=== PATIENT | female | born 1945 | race Caucasian/White ===

== ENCOUNTER 2017-07-24 11:18 | Emergency (ER) | payer OTHER, BC ==
[2017-07-24 11:25] VITALS: BP 133/75; PULSE 100; TEMP 98.6; BMI 39.4
[2017-07-24] MEDS ORDERED: LIDOCAINE 1%/EPI 1:100000 (20 ML MULTI DOSE VIAL) ONE (12:02)
--- NOTE | 2017-07-24 12:19 | PDOC ---
History of Present Illness - General History Source: Patient Exam Limitations: No Limitations - History of Present Illness Initial Comments: 07/24/17 12:19 The patient is a 71 year old female with significant past medical history of hypertension, hyperlipidemia, and borderline diabetes, sent to the ED for approximately 5 days of progressively worsening swelling on her right thigh. She reports associated discomfort in her right thigh. No noticeable drainage. She states this is similar to her previous recurrent abscesses. She was sent to the ED to be seen by Dr. Ann of surgery for abscess incision and drainage. The patient denies fever or chills. She denies nausea, vomiting, or diarrhea. She denies history of MRSA colonization. PCP: Dr. Quezada <Luzma Watson - Last Filed: 07/24/17 12:32> <Pepe Frankel - Last Filed: 07/24/17 13:29> - General Chief Complaint: Abscess Boil Stated Complaint: ABSCESS/ LOWER PELVIC AREA Time Seen by Provider: 07/24/17 11:49 Past History <Luzma Watson - Last Filed: 07/24/17 12:32> - Past Medical History Anemia: Yes (MANY YRS AGO) Asthma: No Cancer: Yes (UTERINE CANCER) Cardiac Disorders: No CVA: No COPD: Yes ("CHRONIC BRONCHITIS") CHF: No Dementia: No Diabetes: Yes ("BORDERLINE") GI Disorders: No Disorders: No HTN: Yes Hypercholesterolemia: Yes Liver Disease: No Seizures: No Thyroid Disease: No - Surgical History Abdominal Surgery: No Appendectomy: Yes Cardiac Surgery: No Cholecystectomy: Yes Lung Surgery: No Neurologic Surgery: Yes (SPINAL FUSION L4-L5) Orthopedic Surgery: Yes (BILATERAL ARTHRO KNEE; ELBOW SX) - Suicide/Smoking/Psychosocial Hx Smoking History: Never smoked Have you smoked in the past 12 months: No Information on smoking cessation initiated: No Hx Alcohol Use: No Drug/Substance Use Hx: No Substance Use Type: None Hx Substance Use Treatment: No <Pepe Frankel - Last Filed: 07/24/17 13:29> - Past Medical History Allergies/Adverse Reactions: Allergies Allergy/AdvReac Type Severity Reaction Status Date / Time adhesive Allergy Severe Rash Verified 07/24/17 11:21 No Known Drug Allergies Allergy Verified 07/24/17 11:21 Home Medications: Ambulatory Orders Ascorbic Acid [Vitamin C] 1,000 mcg PO DAILY 11/14/13 Aspirin [Aspirin EC] 81 mg PO DAILY 11/14/13 Cholecalciferol (Vitamin D3) [Vitamin D3] 2,000 unit PO DAILY 11/14/13 Cyanocobalamin [Vitamin B12 -] 100 mcg PO DAILY 11/14/13 Glucosamine/MSM/Chondroitin A [Tripleflex Caplet] 1 cap PO DAILY 11/14/13 Pravastatin Sodium [Pravachol -] 40 mg PO HS 11/14/13 Valsartan [Diovan] 80 mg PO DAILY 11/14/13 Naproxen Sodium [Aleve] 220 mg PO PRN PRN 01/12/14 Oxycodone HCl/Acetaminophen [Percocet 5-325 mg Tablet] 1 combo PO Q4H PRN #10 tablet 01/14/14 Sulfamethoxazole/Trimethoprim [Bactrim Ds Tablet] 1 each PO BID #14 tablet 07/24 Review of Systems - Review of Systems Constitutional: No: Chills, Fever Respiratory: No: Shortness of Breath Integumentary: Yes: See HPI Neurological: No: Headache <Pepe Frankel - Last Filed: 07/24/17 13:29> *Physical Exam - Vital Signs Last Vital Signs Temp Pulse Resp BP Pulse Ox 98.6 F 100 H 18 133/75 95 07/24/17 11:21 07/24/17 11:21 07/24/17 11:21 07/24/17 11:21 07/24/17 11:21 - Physical Exam Comments: 07/24/17 12:24 GENERAL: The patient is awake, alert, and fully oriented, in no acute distress. HEAD:Normal with no signs of trauma. EYES: Pupils equal, round and reactive to light, extraocular movements intact, sclera anicteric, conjunctiva clear. EXTREMITIES: Normal range of motion, no edema. Missing right third digit. NEUROLOGICAL: Normal speech, normal gait. PSYCH: Normal mood, normal affect. SKIN: Warm, Dry, normal turgor. +7cm abscess to the right medial posterior thigh with surrounding rim of cellulitis, no drainage, no crepitus. <Luzma Watson - Last Filed: 07/24/17 12:32> - Vital Signs Last Vital Signs Temp Pulse Resp BP Pulse Ox 98.6 F 100 H 18 133/75 95 07/24/17 11:21 07/24/17 11:21 07/24/17 11:21 07/24/17 11:21 07/24/17 11:21 <Pepe Frankel - Last Filed: 07/24/17 13:29> Medical Decision Making - Medical Decision Making 07/24/17 12:16 A portion of this note was documented by scribe services under my direction. I have reviewed the details of the note, within reason, and agree with the documentation with the following case summary and management plan written by me. 71-year-old female with history of hypertension and high cholesterol, borderline diabetes sent to see Dr. Ann for abscess incision and drainage. Has been developing right eye abscess over the last 5 days, was seen at Dr. Quezada's office and referred to ED. no known h/o MRSA but does get abscesses , which often spontaneously drain. afebrile. well appearing. About 8 cm right posterior medial thigh abscess Neurovascular intact Dr. Ann at bedside, will plan for I and D. Does not take blood thinners, no indication for lab work Given borderline diabetes, will cover with antibiotics Wound culture Discharge planning with Dr. Ann. 07/24/17 13:25 Status post I and D with Dr. Ann. Culture sent. Dressing placed. Will follow up, one week course of Bactrim was ordered by Dr. Ann. Patient tolerated well, agrees with discharge plan. <Pepe Frankel - Last Filed: 07/24/17 13:29> *DC/Admit/Observation/Transfer - Attestations Scribe Attestion: 07/24/17 12:25 Documentation prepared by Luzma Watson, acting as medical delivery driver for Pepe Frankel MD. <Luzma Watson - Last Filed: 07/24/17 12:32> <Pepe Frankel - Last Filed: 07/24/17 13:29> Diagnosis at time of Disposition: Abscess of right thigh - Discharge Dispostion Disposition: HOME Condition at time of disposition: Improved - Prescriptions Prescriptions: Sulfamethoxazole/Trimethoprim [Bactrim Ds Tablet] 1 each PO BID #14 tablet - Referrals Referrals: Gerardo Ann MD [Staff Physician] - - Patient Instructions Printed Discharge Instructions: DI for Incision and Drainage of a Skin Abscess Additional Instructions: Activity as tolerated. Stay hydrated. Tylenol 1000 mg every 8 hours and/or ibuprofen 600 mg every 8 hours as needed for pain. Remove the dressing tomorrow. As per Dr. Ann, may shower twice daily and follow-up with him in 1-2 weeks. Continue your medications as previously prescribed by your physician. Bactrim twice daily for one week. You should follow up with your primary doctor as soon as possible regarding today's emergency department visit. Return to the emergency department for any new or concerning symptoms, particularly persistent or worsening pain, increasing redness/swelling, fever/ chills, bleeding or pus.
[2017-07-24] MEDS ORDERED: BACITRACIN 0.9 GM PACKET ONE (13:14)
--- NOTE | 2017-07-24 13:14 | PN ---
Progress Note (short form) - Note Progress Note: surgery pt seen and examined. full consult and procedure note dictated. 71f with abscess in right posterior buttock. I$d done with 5 ml pus and small about of sebaceous material removed. cultures sent. pressure dressing placed. Plan-remove dressing tomorrow. shower bid with dry dressing. f/u in 1-2 weeks. 1 week bactrim given.
--- NOTE | 2017-07-24 16:26 | CONS ---
CONSULTATION AND PROCEDURE DATE OF CONSULTATION AND PROCEDURE: 07/24/2017 REASON FOR CONSULTATION AND PROCEDURE: An abscess of the posterior right buttock. This is an emergency room consultation. BRIEF HISTORY: This is a 71-year-old female who presents with a 5-day history of a painful lump on her posterior right buttock. She was sent in for surgical evaluation of drainage of a likely abscess. She denies fever. PAST MEDICAL HISTORY: Significant for hypertension and hyperlipidemia. HOME MEDICATIONS: Include aspirin and pravastatin. SOCIAL HISTORY: Negative for alcohol. Negative for tobacco. FAMILY HISTORY: Negative for in the immediate family. ALLERGIES: She has no known drug allergies. REVIEW OF SYSTEMS: General: Denies fatigue or malaise. Cardiac: Denies chest pain or palpitations. Respiratory: Denies shortness of breath or wheeze. Gastrointestinal: No nausea or vomiting. Genitourinary: Denies dysuria. Musculoskeletal: Denies joint pain and joint swelling. Psychiatric: Denies anxiety, depression, or hearing voices. Skin: Admits to a painful lump in her right posterior buttock. PHYSICAL EXAMINATION: General: This is a morbidly obese, 71-year-old female in no distress. Vital Signs: She is afebrile. HEENT: Her head is normocephalic. Her sclerae are anicteric. Neck: Supple. Chest: Clear. Abdomen: Soft. Extremities: Have edema. Skin: At her right inferior posterior buttock, she has an area of fluctuance approximately 3 cm in diameter with a puncta. ASSESSMENT: A 71-year-old female with a likely infected small cyst/abscess. We will perform incision and drainage. PROCEDURE: Incision and drainage of a posterior buttock cyst/abscess. SURGEON: Gerardo Ann DO SUGGESTION CLERK: None. ANESTHESIA: Local. PREPROCEDURE DIAGNOSIS: An inferior right buttock abscess. POSTPROCEDURE DIAGNOSIS: An inferior right buttock abscess. DRAINS: None. SPECIMEN: Wound culture. BLOOD LOSS: Minimal. COMPLICATIONS: None. DESCRIPTION OF PROCEDURE: The patient is placed in the lateral recumbent position with the right side up. The right posterior buttock is prepped and draped in sterile fashion, and 10 mL of lidocaine with epinephrine is used to anesthetize the overlying skin. A 3-cm incision is made over the area of fluctuance. Approximately 5 mL of pus with a small amount of sebum and cyst capsule is expressed. Pressure dressing is placed. Overall, the patient tolerated the procedure well. There were no complications. The patient was discharged home with a pressure dressing with bacitracin applied, with plans to remove the dressing tomorrow and shower twice a day with soap and water and apply a dry dressing. She will follow with me in 1-2 weeks to evaluate healing of the wound. She is also given a prescription for Bactrim DS twice a day. She will take that for 1 week, and cultures have been sent. DO VALDEMAR ELAM/[id number]
== END 2017-07-24 13:39 | disposition home or self-care (01) ==
LOC: JER 11:18
PROC: 0J990ZZ Drainage of Buttock Subcutaneous Tissue and Fascia, Open Approach (ICD-10-PCS; principal; 2017-07-24)
DX: L02.31 Cutaneous abscess of buttock (principal); L03.317 Cellulitis of buttock; I10 Essential (primary) hypertension; E11.9 Type 2 diabetes mellitus without complications; E78.00 Pure hypercholesterolemia, unspecified; J44.9 Chronic obstructive pulmonary disease, unspecified; Z85.42 Personal history of malignant neoplasm of other parts of uterus
CPT/HCPCS: 10060; 87070; 87205; 99282-25

== ENCOUNTER 2018-05-24 10:54 | Day surgery (SDC) | payer OTHER, BC ==
[2018-05-24 11:30] VITALS: BMI 40.7
[2018-05-24] MEDS ORDERED: PROPOFOL 20 ML ONE ×2 (12:22)
[2018-05-24] MEDS ORDERED: LIDOCAINE HCL/PF 2% SDV 5ML VIAL ONE (12:22)
[2018-05-24 13:04] VITALS: TEMP 98.7
[2018-05-24 15:10] VITALS: BP 127/74; PULSE 77
--- NOTE | 2018-05-27 12:27 | PATH ---
Surgical Pathology Report Patient Name: ANDRE REBOLLAR [facility]. Rec. #: [id number] /Age/Gender: 1945 (Age: 72) / F Account: [id number] Location: [facility]-ENDOSCOPY Taken: 05/24/2018 Received: 05/24/2018 Reported: 05/27/2018 Physicians: Dina Ramírez M.D. Specimen(s) Received A: BX CECUM POLYPS B: BX CECUM MICROSCOPIC COLITIS C: BX ILEUM D: BX POLYP FROM SIGMOID Clinical History Personal history of colon polyp Postoperative diagnosis: Cecal polyp, colon polyps, rule out microscopic colitis Final Diagnosis A. CECUM, POLYPS, BIOPSY: POLYPOID COLONIC MUCOSA WITH PROMINENT LYMPHOID AGGREGATE. B. CECUM, BIOPSY: COLONIC MUCOSA WITHOUT SIGNIFICANT PATHOLOGIC FINDINGS. C. ILEUM, BIOPSY: ILEAL MUCOSA WITHOUT SIGNIFICANT PATHOLOGIC FINDINGS. D. SIGMOID COLON, POLYP, BIOPSY: HYPERPLASTIC POLYP. Electronically Signed Merary Garcia M.D. Gross Description A. Received in formalin, labeled "biopsy cecal polyp" are 3 guerrier, irregular portions of soft tissue ranging from 0.1-0.3 cm. in greatest dimension. The specimens are submitted in toto in one cassette. B. Received in formalin, labeled "biopsy cecum" are 2 guerrier, irregular portions of soft tissue measuring 0.2 and 0.8 cm. in greatest dimension. The specimens are submitted in toto in one cassette. C. Received in formalin, labeled "biopsy ileum" are 2 guerrier, irregular portions of soft tissue measuring 0.1 and 0.4 cm. in greatest dimension. The specimens are submitted in toto in one cassette. D. Received in formalin, labeled "biopsy polyp sigmoid colon" are 2 guerrier, irregular portions of soft tissue measuring 0.1 and 0.3 cm. in greatest dimension. The specimens are submitted in toto in one cassette. DL/05/24/2018 saudi05/24/2018
== END 2018-05-24 14:15 | disposition home or self-care (01) ==
LOC: JASU-ENDO 10:54
PROVIDERS: ATTEND Internal Medicine Gastroenterology
PROC: 0DBN8ZX Excision of Sigmoid Colon, Via Natural or Artificial Opening Endoscopic, Diagnostic (ICD-10-PCS; 2018-05-24)
PROC: 0DBH8ZX Excision of Cecum, Via Natural or Artificial Opening Endoscopic, Diagnostic (ICD-10-PCS; principal; 2018-05-24 12:00)
DX: Z86.010 Personal history of colon polyps (principal); K63.5 Polyp of colon; K57.30 Diverticulosis of large intestine without perforation or abscess without bleeding; K63.89 Other specified diseases of intestine; R19.5 Other fecal abnormalities; I10 Essential (primary) hypertension; E78.5 Hyperlipidemia, unspecified
CPT/HCPCS: 88305-TC

== ENCOUNTER 2022-01-10 15:01 | Observation (INO) | payer OTHER, BC ==
[2022-01-10] MEDS ORDERED: METOCLOPRAMIDE HCL INJECTION 10 MG/2 ML VIAL IVPUSH ONE (16:19)
[2022-01-10] MEDS ORDERED: METOCLOPRAMIDE HCL INJECTION 10 MG/2 ML VIAL ONE (16:52)
[2022-01-10 17:08] LABS: BASO % 0.8 % (0-2.0); EOS % 2.2 % (0-4.5); HEMATOCRIT 41.5 % (32.4-45.2); HEMOGLOBIN 13.6 GM/dL (10.7-15.3); LYMPH % 22.7 % (8-40); MCH 27.2 pg (25.7-33.7); MCHC 32.7 g/dl (32.0-36.0); MEAN CELL VOLUME 83.2 fl (80-96); MEAN PLT VOLUME 10.1 fl (7.5-11.1); MONO % 7.4 % (3.8-10.2); NEUT % 66.9 % (42.8-82.8); PLATELET COUNT 270 10^3/uL (134-434); RBC 4.99 M/mm3 (3.60-5.2); RDW 15.1 % (11.6-15.6); WHITE BLOOD COUNT 9.9 K/mm3 (4.0-10.0)
[2022-01-10 17:17] LABS: INR 1.12 (0.83-1.09); PROTHROMBIN TIME (PATIENT) 12.9 SEC (9.7-13.0)
[2022-01-10 17:20] LABS: ACTIVATED PTT 30.1 SECONDS (25.2-36.5)
[2022-01-10 17:31] LABS: ALBUMIN 3.7 g/dl (3.4-5.0); BLOOD UREA NITROGEN 24.8 mg/dL (7-18); CALCIUM 9.3 mg/dL (8.5-10.1)
[2022-01-10 17:34] LABS: CREATININE 0.9 mg/dL (0.55-1.3)
[2022-01-10 17:36] LABS: BILIRUBIN,TOTAL 0.2 mg/dL (0.2-1); TOT PROT 7.2 g/dl (6.4-8.2)
[2022-01-10] MEDS ORDERED: MECLIZINE HCL 25 MG TABLET (FP) PO ONE (18:48)
[2022-01-10] MEDS ORDERED: MECLIZINE HCL 25 MG TABLET (FP) ONE (19:05)
[2022-01-10 19:07] LABS: URINE APPEARANCE CLEAR; URINE BILIRUBIN NEGATIVE (NEGATIVE); URINE COLOR YELLOW; URINE GLUCOSE (UA) NEGATIVE (NEGATIVE); URINE KETONE NEGATIVE (NEGATIVE); URINE LEUK ESTERASE NEGATIVE (NEGATIVE); URINE NITRITE NEGATIVE (NEGATIVE); URINE PROTEIN NEGATIVE (NEGATIVE); URINE UROBILINOGEN 0.2 mg/dL (0.2-1.0)
[2022-01-11] MEDS: SODIUM CHLORIDE 0.45% 1,000 ML IV SCH ×2 (01:56→22:58)
[2022-01-11 10:50] LABS: BASO % 0.5 % (0-2.0); HEMATOCRIT 40.2 % (32.4-45.2); HEMOGLOBIN 13.8 GM/dL (10.7-15.3); LYMPH % 17.7 % (8-40); MCH 28.1 pg (25.7-33.7); MCHC 34.3 g/dl (32.0-36.0); MEAN CELL VOLUME 81.9 fl (80-96); MEAN PLT VOLUME 9.6 fl (7.5-11.1); MONO % 6.3 % (3.8-10.2); NEUT % 73.5 % (42.8-82.8); PLATELET COUNT 241 10^3/uL (134-434); RBC 4.91 M/mm3 (3.60-5.2); RDW 15.2 % (11.6-15.6); WHITE BLOOD COUNT 10.2 K/mm3 (4.0-10.0)
[2022-01-11 10:54] LABS: INR 1.18 (0.83-1.09); PROTHROMBIN TIME (PATIENT) 13.6 SEC (9.7-13.0)
[2022-01-11 10:56] LABS: ACTIVATED PTT 28.6 SECONDS (25.2-36.5)
[2022-01-11 11:21] LABS: ALBUMIN 3.5 g/dl (3.4-5.0); BLOOD UREA NITROGEN 22.2 mg/dL (7-18); CALCIUM 9.4 mg/dL (8.5-10.1)
[2022-01-11] MEDS ORDERED: VALSARTAN 80 MG TABLET ONE (11:23)
[2022-01-11 11:24] LABS: CREATININE 0.9 mg/dL (0.55-1.3)
[2022-01-11 11:26] LABS: BILIRUBIN,TOTAL 0.7 mg/dL (0.2-1); TOT PROT 6.9 g/dl (6.4-8.2)
[2022-01-11] MEDS: HYDROCHLOROTHIAZIDE 12.5 MG CAPSULE (FP) PO SCH (11:30)
[2022-01-11] MEDS: VALSARTAN 80 MG TABLET PO SCH (11:30)
[2022-01-11] MEDS: INSULIN SLIDING SCALE (NOVOLOG) 1 VIAL SQ SCH ×3 (11:44→22:22)
[2022-01-11] MEDS ORDERED: MECLIZINE HCL 25 MG TABLET (FP) PO PRN (11:51)
[2022-01-11] MEDS ORDERED: ONDANSETRON 4 MG/2 ML VIAL IVPUSH PRN (11:52)
[2022-01-11 15:38] LABS: EPI CELLS 1 /uL (0-25.1); HYALINE CASTS 1 /uL (0-3.1); URINE APPEARANCE CLEAR; URINE BACTERIA >9,000 /uL (0-1359); URINE BILIRUBIN NEGATIVE (NEGATIVE); URINE COLOR YELLOW; URINE GLUCOSE (UA) NEGATIVE (NEGATIVE); URINE KETONE NEGATIVE (NEGATIVE); URINE LEUK ESTERASE 2+ (NEGATIVE); URINE NITRITE POSITIVE (NEGATIVE); URINE PROTEIN NEGATIVE (NEGATIVE); URINE RBC 6 /uL (0-23.9); URINE UROBILINOGEN 0.2 mg/dL (0.2-1.0); URINE WBC 332 /uL (0-25.8)
[2022-01-11] MEDS ORDERED: CEFTRIAXONE 1 GM/50 ML BAG ONE (18:11)
[2022-01-11] MEDS: CEFTRIAXONE 1 GM in DEXTROSE 5%-WATER - 50 ML IVPB SCH (22:00)
[2022-01-11] MEDS ORDERED: ATORVASTATIN CA 10 MG TABLET (FP) PO SCH (22:00)
[2022-01-11] MEDS ORDERED: ATORVASTATIN CA 10 MG TABLET (FP) ONE (22:03)
[2022-01-12 02:33] VITALS: BMI 42.0
[2022-01-12] MEDS ORDERED: ACETAMINOPHEN 325 MG TABLET (FP) PO PRN (04:48)
[2022-01-12] MEDS: INSULIN SLIDING SCALE (NOVOLOG) 1 VIAL SQ SCH ×2 (06:41→11:50)
[2022-01-12 07:12] LABS: BASO % 0.6 % (0-2.0); HEMATOCRIT 38.1 % (32.4-45.2); HEMOGLOBIN 12.5 GM/dL (10.7-15.3); LYMPH % 19.9 % (8-40); MCH 26.9 pg (25.7-33.7); MCHC 32.7 g/dl (32.0-36.0); MEAN CELL VOLUME 82.2 fl (80-96); MEAN PLT VOLUME 10.2 fl (7.5-11.1); MONO % 6.9 % (3.8-10.2); NEUT % 70.6 % (42.8-82.8); PLATELET COUNT 251 10^3/uL (134-434); RBC 4.64 M/mm3 (3.60-5.2); WHITE BLOOD COUNT 9.5 K/mm3 (4.0-10.0)
[2022-01-12 07:27] LABS: CALCIUM 9.1 mg/dL (8.5-10.1)
[2022-01-12 07:28] LABS: ALBUMIN 3.3 g/dl (3.4-5.0); BLOOD UREA NITROGEN 21.3 mg/dL (7-18)
[2022-01-12 07:31] LABS: CREATININE 0.8 mg/dL (0.55-1.3)
[2022-01-12 07:32] LABS: BILIRUBIN,TOTAL 0.6 mg/dL (0.2-1); TOT PROT 6.3 g/dl (6.4-8.2)
[2022-01-12 08:50] VITALS: TEMP 98.2
[2022-01-12] MEDS ORDERED: cefTRIAXone SODIUM 1 GM VIAL ONE (09:14)
[2022-01-12] MEDS ORDERED: DEXTROSE 5%-WATER - 50 ML IVPB ONE (09:15)
[2022-01-12] MEDS: HYDROCHLOROTHIAZIDE 12.5 MG CAPSULE (FP) PO SCH (09:32)
[2022-01-12] MEDS: VALSARTAN 80 MG TABLET PO SCH (09:32)
[2022-01-12] MEDS: CEFTRIAXONE 1 GM in DEXTROSE 5%-WATER - 50 ML IVPB SCH (12:31)
[2022-01-12 14:15] VITALS: BP 129/69; PULSE 86
[2022-01-12] MEDS ORDERED: AMOX TR/POT CLAV 875MG/125MG TABLETS (FP) PO SCH (17:30)
== END 2022-01-12 16:15 | disposition home or self-care (01) ==
LOC: JER 15:01 → JERBED 19:13 → J4S 01-11 22:24
PROVIDERS: ADMIT Hospitalist; ATTEND Internal Medicine
PROC: 3E0337Z Introduction of Electrolytic and Water Balance Substance into Peripheral Vein, Percutaneous Approach (ICD-10-PCS; principal; 2022-01-10)
DX: R42 Dizziness and giddiness (principal); I10 Essential (primary) hypertension; E11.9 Type 2 diabetes mellitus without complications; E78.5 Hyperlipidemia, unspecified; E66.01 Morbid (severe) obesity due to excess calories; Z68.41 Body mass index [BMI] 40.0-44.9, adult; Z90.49 Acquired absence of other specified parts of digestive tract
CPT/HCPCS: 36415; 70450-TC; 70551-TC; 80053; 80061; 81003; 82962; 83036; 83735; 84484; 85025; 85610; 85730; 87086; 87186; 93005; 93010; 96361; 96374; 97116-GP; 97161-GP; 99285-25; C9803; G0378; U0003; U0005

== ENCOUNTER 2024-09-01 15:24 | Emergency (ER) | payer OTHER, BC ==
[2024-09-01 15:39] VITALS: BP 133/80; PULSE 98; RESP 18; TEMP 97.5; BMI 40.7
== END 2024-09-01 16:31 | disposition home or self-care (01) ==
LOC: FER 15:24
DX: L03.011 Cellulitis of right finger (principal)
CPT/HCPCS: 73130-TC-RT-FY; 99283-25